=== PATIENT | male | born 1985 | race Caucasian/White ===

== ENCOUNTER 2017-01-10 20:19 | Emergency (ER) | payer OTHER ==
[~2017-01-10 20:19] MED LIST: APAP500 MG PO; CANASA1000 MG RC; CIPRO500 MG PO; COL100 PO; DEPAKOTE ER500 MG PO; DULERA1 AR2 INH; FLA500 PO; FLO4 PO; GABAPENTIN600 M1 PO; GOOD SENSE400 MG/5 M PO; HYDROXYZINE PAM50 MG PO; LACTULOSE10 GM/152 PO; LOPERAMIDE HCL2 MG PO; METOCLOPRAMIDE10 M2 PO; MIRTAZAPINE45 M1 PO; PAN PO; PREDNISONE20 MG PO; PROTONIX40 MG PO; TRIAMCINOLONE AC0.13 TOP; XOPENEX HF0.045 MG/1 IH
[2017-01-10 21:21] LABS: BASOPHIL % 0.3 % (0-2); PLATELET COUNT 265 x10^3mcL (130-400)
[2017-01-10 21:22] LABS: RED CELL DISTRIBUTION WIDTH 16.9 % (11.5-14.5)
[2017-01-10 21:31] LABS: CALCIUM 8.4 mg/dL (8.5-10.1); CARBON DIOXIDE 23.1 mmol/L (21-32); CHLORIDE SERUM 107 mmol/L (98-107); CREATININE SERUM 0.8 mg/dL (0.7-1.3); GFR1 > 60 mL/min; GLUCOSE SERUM 98 mg/dL (74-106); POTASSIUM SERUM 3.6 mmol/L (3.5-5.1); SODIUM SERUM 141 mmol/L (136-145)
[2017-01-10 21:36] LABS: ALKALINE PHOSPHATASE 59 U/L (46-116); ALT/SGPT 34 U/L (16-63); AST/SGOT 21 U/L (15-37); BILIRUBIN TOTAL 0.2 mg/dL (0.20-1.00); TOTAL PROTEIN, SERUM 6.7 g/dL (6.4-8.2)
[2017-01-10 21:38] LABS: ALBUMIN 3.3 g/dL (3.4-5.0)
[2017-01-10 22:44] LABS: BASOPHIL % 0.6 % (0-2); PLATELET COUNT 274 x10^3mcL (130-400)
[2017-01-10 22:49] LABS: RED CELL DISTRIBUTION WIDTH 16.3 % (11.5-14.5)
[2017-01-10 23:47] VITALS: BP 126/75
== END 2017-01-10 23:47 | disposition home or self-care (01) ==
LOC: ED 20:19
PROVIDERS: Emergency Medicine
DX: R10.9 Unspecified abdominal pain (principal); K92.0 Hematemesis; Z76.5 Malingerer [conscious simulation]
CPT/HCPCS: J1200; J1630; J3010; Q0092